=== PATIENT | male | born 1985 | race Two or more races ===

== ENCOUNTER 2024-03-30 15:26 | Emergency (ER) | payer SELFPAY | END 2024-03-30 16:29 | disposition home or self-care (01) | LOC: MW.ED 15:26 | DX: F10.929 Alcohol use, unspecified with intoxication, unspecified (principal); Z75.8 Other problems related to medical facilities and other health care | CPT/HCPCS: 99283; 99284 ==

== ENCOUNTER 2024-04-07 22:23 | Emergency (ER) | payer SELFPAY ==
[2024-04-07] MEDS: Ondansetron 4 MG Tab.DIS PO ONE (23:15)
[2024-04-07 23:35] LABS: BASOPHILS ABSOLUTE AUTO 0.07 K/uL (0.00-0.20); BASOPHILS PERCENT AUTO 1.1 % (0.0-1.0); EOSINOPHILS ABSOLUTE AUTO 0.02 K/uL (0.00-0.45); EOSINOPHILS PERCENT AUTO 0.3 % (0.0-6.0); HEMATOCRIT 40.8 % (42.0-52.0); HEMOGLOBIN 14.5 g/dL (14.0-18.0); IMMATURE GRAN ABSOLUTE AUTO 0.04 K/uL (0.00-0.05); IMMATURE GRAN PERCENT AUTO 0.6 % (0.0-0.4); MEAN CORPUSCULAR HEMOGLOBIN 30.7 pg (28.0-32.0); MEAN CORPUSCULAR HGB CONC 35.5 g/dL (32.0-36.0); MEAN CORPUSCULAR VOLUME 86.4 fL (83.0-99.0); MEAN PLATELET VOLUME 9.1 fL (9.4-12.4); MONOCYTES ABSOLUTE AUTO 0.78 K/uL (0.00-0.80); NEUTROPHILS ABSOLUTE AUTO 4.11 K/uL (1.80-7.70); PLATELET COUNT,PLT 340 K/uL (150-400); RED BLOOD CELL COUNT 4.72 M/uL (4.52-5.90); WHITE BLOOD CELL COUNT,WBC 6.52 K/uL (3.9-11.3)
[2024-04-08 00:02] LABS: A/G RATIO 1.2 (0.9-1.6); ACETAMINOPHEN <2.0 ug/mL; ALANINE AMINOTRANSFERASE,ALT 368 IU/L (14-63); ALBUMIN 4.2 g/dL (3.4-5.0); ALKALINE PHOSPHATASE 127 U/L (46-116); ASPARTATE AMNIOTRANSFERASE,AST 391 IU/L (15-37); BILIRUBIN TOTAL 0.7 mg/dL (0.2-1.0); BLOOD UREA NITROGEN,BUN 4 mg/dL (7.0-18.0); CALCIUM 8.5 mg/dL (8.5-10.1); CARBON DIOXIDE,CO2 26.3 mmol/L (21.0-32.0); CHLORIDE,CL 95 mmol/L (98-107); CREATININE 0.9 mg/dL (0.8-1.3); EST CRCL DRUG DOSING (CG) 93.01 mL/min; GLUCOSE RANDOM 198 mg/dL (74-106); POTASSIUM,K 3.2 mmol/L (3.5-5.1); PROTEIN TOTAL,TP 7.8 g/dL (6.4-8.2); SALICYLATE <0.2 mg/dL (0.0-20.0); SODIUM,NA 135 mmol/L (136-148)
[2024-04-08 00:03] LABS: ESTIMATED GFR 109 mL/min (>60); ETHANOL BLOOD MEDICAL 394 mg/dL
== END 2024-04-08 01:00 | disposition left against medical advice (07) ==
LOC: EDBD → EDUNIT# 22:23 → MW.ED 22:23
DX: F10.920 Alcohol use, unspecified with intoxication, uncomplicated (principal); R74.01 Elevation of levels of liver transaminase levels
CPT/HCPCS: 36415; 80053; 80143; 80179; 80307; 83735; 85025; 99284

== ENCOUNTER 2024-04-08 21:54 | Emergency (ER) | payer SELFPAY | END 2024-04-08 22:20 | disposition home or self-care (01) | LOC: MW.ED 21:54 | DX: Z02.89 Encounter for other administrative examinations (principal); F10.120 Alcohol abuse with intoxication, uncomplicated; I10 Essential (primary) hypertension | CPT/HCPCS: 99283 ==